=== PATIENT | male | born 1945 | race Two or more races ===

== ENCOUNTER 2020-11-11 11:43 | Emergency (ER) | payer OTHER ==
[~2020-11-11] VITALS: Ht 167.6 cm; Wt 78.9 kg
[2020-11-11 11:45] VITALS: BP 108/83
== END 2020-11-11 13:33 | disposition home or self-care (01) ==
LOC: ER 11:43
DX: K04.7 Periapical abscess without sinus (principal); I10 Essential (primary) hypertension
CPT/HCPCS: 93005

== ENCOUNTER 2021-05-12 16:31 | Emergency (ER) | payer OTHER ==
[~2021-05-12] VITALS: Ht 167.6 cm; Wt 78.5 kg
[2021-05-12 16:40] VITALS: BP 129/69
== END 2021-05-12 18:29 | disposition home or self-care (01) ==
LOC: ER 16:31
DX: M79.10 Myalgia, unspecified site (principal); M79.621 Pain in right upper arm; M54.50 Low back pain, unspecified; I10 Essential (primary) hypertension; V43.52XA Car driver injured in collision with other type car in traffic accident, initial encounter; Y93.89 Activity, other specified; Y92.89 Other specified places as the place of occurrence of the external cause; Y99.8 Other external cause status
CPT/HCPCS: 72100; 73060; 93005

== ENCOUNTER 2021-11-16 06:46 | Emergency (ER) | payer OTHER ==
[~2021-11-16] VITALS: Ht 167.6 cm; Wt 79.0 kg
[2021-11-16 08:00] LABS: Basophils # (auto) 0.1 10 ^3/uL (0-0.2); Basophils % (auto) 1.2 % (0.0-2.0); Eosinophils # (auto) 0.2 10 ^3/uL (0-0.8); Eosinophils % (auto) 3.2 % (0.0-7.0); Hematocrit 44.1 % (41.0-53.0); Hemoglobin 14.9 g/dL (13.5-17.5); Lymphocytes # (auto) 1.4 10 ^3/uL (0.4-5.4); Lymphocytes % (auto) 21.6 % (10.0-50.0); Mean Corpuscular Hemoglobin 30.5 pg (28.0-32.0); Mean Corpuscular Hgb Conc. 33.8 g/dL (32.0-36.0); Mean Corpuscular Volume 90.2 fL (80.0-100.0); Monocytes # (auto) 0.5 10 ^3/uL (0-1.3); Monocytes % (auto) 7.2 % (0.0-12.0); Neutrophils # (auto) 4.3 10 ^3/uL (1.6-8.6); Neutrophils % (auto) 66.8 % (37.0-80.0); Nucleated Red Blood Cells % 0.1 %; Red Blood Cells 4.89 10^6/uL (4.5-5.90); Red Cell Distribution Width 13.9 % (11.8-14.3); White Blood Cell 6.5 10^3/uL (4.4-10.8)
[2021-11-16 08:15] LABS: Albumin 3.8 g/dL (3.4-5.0); Calcium 8.8 mg/dL (8.5-10.1)
[2021-11-16 08:19] LABS: BUN/Creatinine Ratio 16.7; Bilirubin, Total 0.4 mg/dL (0.2-1.0); Total Protein 6.8 g/dL (6.4-8.2)
[2021-11-16 10:10] VITALS: BP 14/85
== END 2021-11-16 10:13 | disposition home or self-care (01) ==
LOC: ER 06:46
DX: I10 Essential (primary) hypertension (principal); F45.8 Other somatoform disorders; E78.5 Hyperlipidemia, unspecified
CPT/HCPCS: 36415; 71045; 80053; 84484; 85025; 93005

== ENCOUNTER 2023-01-24 21:05 | Inpatient (IN) | payer MEDICARE, OTHER ==
[~2023-01-24] VITALS: Ht 167.6 cm; Wt 80.2 kg
[2023-01-24] MEDS ORDERED: MORPHINE SULFATE 4 MG/ML SYR/VIAL IV ONE (21:45)
[2023-01-24] MEDS ORDERED: METOCLOPRAMIDE HCL 5MG/ml INJ 2ml VIAL IV ONE (21:45)
[2023-01-24] MEDS ORDERED: PANTOPRAZOLE 40 MG/10 ML VIAL INJ IV ONE (21:45)
[2023-01-24] MEDS ORDERED: SODIUM CHLORIDE 0.9% 1,000 ML IVB ONE (21:45)
[2023-01-24] MEDS ORDERED: ASPirin 81 mg TAB PO ONE (21:45)
[2023-01-24] MEDS ORDERED: IOHEXOL 300 MG/ML 100ML BOTTLE IJ ONE ×2 (21:57→21:59)
[2023-01-24 22:17] LABS: Basophils # (auto) 0.1 10 ^3/uL (0-0.2); Basophils % (auto) 0.6 % (0.0-2.0); Eosinophils # (auto) 0.1 10 ^3/uL (0-0.8); Eosinophils % (auto) 0.6 % (0.0-7.0); Hematocrit 46.9 % (41.0-53.0); Hemoglobin 16.1 g/dL (13.5-17.5); Lymphocytes # (auto) 1.9 10 ^3/uL (0.4-5.4); Lymphocytes % (auto) 14.3 % (10.0-50.0); Mean Corpuscular Hemoglobin 31.4 pg (28.0-32.0); Mean Corpuscular Hgb Conc. 34.3 g/dL (32.0-36.0); Mean Corpuscular Volume 91.4 fL (80.0-100.0); Monocytes # (auto) 0.8 10 ^3/uL (0-1.3); Monocytes % (auto) 5.6 % (0.0-12.0); Neutrophils # (auto) 10.7 10 ^3/uL (1.6-8.6); Neutrophils % (auto) 78.9 % (37.0-80.0); Nucleated Red Blood Cells % 0.2 %; Red Blood Cells 5.13 10^6/uL (4.5-5.90); Red Cell Distribution Width 14.1 % (11.8-14.3); White Blood Cell 13.6 10^3/uL (4.4-10.8)
[2023-01-24 22:32] LABS: Urine Bacteria NONE SEEN /hpf (None Seen); Urine Blood Negative /uL (Negative); Urine Clarity Clear (Clear); Urine Color Yellow (Yellow); Urine Mucus FEW (None Seen); Urine Protein, UAD 1+ (Negative); Urine WBC 1 /hpf (0 - 3)
[2023-01-24 22:32] LABS: INR 1.14 (0.9-1.15); Partial Thromboplastin Time 29.2 SEC (24.5-34.5); Prothrombin Time 11.9 sec (9.3-11.8)
[2023-01-24 22:33] LABS: Alanine Aminotransferase 25 U/L (7-40); Albumin 4.9 g/dL (3.2-4.8); Alkaline Phosphatase 71 U/L (46-116); Anion Gap 8 (5-15); Aspartate Aminotransferase 30 U/L (13-40); BUN/Creatinine Ratio 10.9 (10.0-20.0); Bilirubin, Total 1.2 mg/dL (0.2-1.0); Blood Urea Nitrogen 12 mg/dL (9-23); Calcium 9.9 mg/dL (8.7-10.4); Carbon Dioxide 24 mmol/L (20-30); Chloride 105 mmol/L (98-107); Glucose 122 mg/dL (74-106); Lipase 48 U/L (12-53); Magnesium 2.1 mg/dL (1.6-2.6); Potassium 4.3 mmol/L (3.5-5.1); Sodium 137 mmol/L (136-145)
[2023-01-24 22:34] LABS: Total Protein 7.6 g/dL (5.7-8.2)
[2023-01-25] MEDS ORDERED: MORPHINE SULFATE INJ 2 MG/ml SYRG IV PRN ×2 (06:00)
[2023-01-25] MEDS ORDERED: ACETAMINOPHEN 325 MG TAB PO PRN (06:00)
[2023-01-25] MEDS ORDERED: HYDROcodone-ACET 5/325MG TAB PO PRN (06:00)
[2023-01-25] MEDS ORDERED: ONDANSETRON HCL 4 MG/2 ML VIAL IV PRN (06:00)
[2023-01-25] MEDS ORDERED: NITROGLYCERIN 0.4 MG SL TAB SL PRN (06:00)
[2023-01-25] MEDS ORDERED: DOCUSATE SOD 100 MG CAP PO PRN (06:00)
[2023-01-25] MEDS: metroNIDAZOLE 500MG/100ML 100 ML IV SCH ×3 (06:52→22:51)
[2023-01-25] MEDS: SODIUM CHLORIDE 0.9% 1,000 ML IV SCH ×2 (06:52→22:51)
[2023-01-25 08:04] VITALS: PULSE 62; RESP 15; O2SAT 97
[2023-01-25] MEDS: PANTOPRAZOLE 40 MG/10 ML VIAL INJ IV SCH (10:01)
[2023-01-25] MEDS: TAMSULOSIN HYDROCHLORIDE 0.4 MG CAP PO SCH (19:02)
[2023-01-25 20:00] VITALS: PULSE 80; RESP 17; O2SAT 96
[2023-01-26] MEDS: metroNIDAZOLE 500MG/100ML 100 ML IV SCH (05:45)
[2023-01-26 06:50] LABS: Alanine Aminotransferase 18 U/L (7-40); Albumin 3.9 g/dL (3.2-4.8); Alkaline Phosphatase 63 U/L (46-116); Anion Gap 8 (5-15); Aspartate Aminotransferase 23 U/L (13-40); BUN/Creatinine Ratio 9.6 (10.0-20.0); Blood Urea Nitrogen 9 mg/dL (9-23); Calcium 8.6 mg/dL (8.7-10.4); Carbon Dioxide 21 mmol/L (20-30); Chloride 110 mmol/L (98-107); Glucose 69 mg/dL (74-106); Sodium 139 mmol/L (136-145)
[2023-01-26] MEDS: D5W/SOD CHL 0.45% 1,000 ML IV SCH ×2 (07:02→20:20)
[2023-01-26 07:51] VITALS: RESP 17; O2SAT 96
[2023-01-26 07:58] LABS: Basophils # (auto) 0 10 ^3/uL (0-0.2); Basophils % (auto) 0.4 % (0.0-2.0); Eosinophils # (auto) 0.2 10 ^3/uL (0-0.8); Eosinophils % (auto) 2.3 % (0.0-7.0); Hematocrit 42.3 % (41.0-53.0); Hemoglobin 14.6 g/dL (13.5-17.5); Lymphocytes # (auto) 1.4 10 ^3/uL (0.4-5.4); Lymphocytes % (auto) 15.8 % (10.0-50.0); Mean Corpuscular Hgb Conc. 34.6 g/dL (32.0-36.0); Mean Corpuscular Volume 92.7 fL (80.0-100.0); Monocytes # (auto) 0.6 10 ^3/uL (0-1.3); Monocytes % (auto) 6.8 % (0.0-12.0); Neutrophils # (auto) 6.8 10 ^3/uL (1.6-8.6); Neutrophils % (auto) 74.7 % (37.0-80.0); Red Blood Cells 4.56 10^6/uL (4.5-5.90); Red Cell Distribution Width 13.6 % (11.8-14.3); White Blood Cell 9.1 10^3/uL (4.4-10.8)
[2023-01-26 09:02] VITALS: BP 139/67; PULSE 86; RESP 18; TEMP 98.3; O2SAT 98
[2023-01-26] MEDS: PANTOPRAZOLE 40 MG/10 ML VIAL INJ IV SCH (09:17)
[2023-01-26] MEDS ORDERED: ATOR40TA52 PO (09:48)
[2023-01-26] MEDS ORDERED: SPIR25TA8 PO (09:48)
[2023-01-26] MEDS ORDERED: CHOL20007 PO (09:48)
[2023-01-26] MEDS ORDERED: TAMS-35 PO (09:48)
[2023-01-26] MEDS ORDERED: BENA-36 PO (09:48)
[2023-01-26 13:34] VITALS: BP 119/59; PULSE 71; RESP 17; TEMP 98; O2SAT 99
[2023-01-26] MEDS ORDERED: GASTROGRAFIN 120 ML SOL ONE (15:31)
[2023-01-26] MEDS: TAMSULOSIN HYDROCHLORIDE 0.4 MG CAP PO SCH (17:30)
[2023-01-26 22:00] VITALS: BP 127/78; PULSE 120; RESP 16; TEMP 97.1; O2SAT 91
[2023-01-27 05:00] VITALS: BP 132/72; PULSE 64; RESP 16; TEMP 98.3; O2SAT 95
[2023-01-27 06:34] LABS: Basophils # (auto) 0.1 10 ^3/uL (0-0.2); Basophils % (auto) 0.7 % (0.0-2.0); Eosinophils # (auto) 0.1 10 ^3/uL (0-0.8); Eosinophils % (auto) 1.4 % (0.0-7.0); Hematocrit 43.6 % (41.0-53.0); Hemoglobin 15.2 g/dL (13.5-17.5); Lymphocytes # (auto) 1.5 10 ^3/uL (0.4-5.4); Lymphocytes % (auto) 14.6 % (10.0-50.0); Mean Corpuscular Hemoglobin 31.7 pg (28.0-32.0); Mean Corpuscular Hgb Conc. 34.8 g/dL (32.0-36.0); Mean Corpuscular Volume 91.1 fL (80.0-100.0); Monocytes # (auto) 0.9 10 ^3/uL (0-1.3); Monocytes % (auto) 8.4 % (0.0-12.0); Neutrophils # (auto) 7.9 10 ^3/uL (1.6-8.6); Neutrophils % (auto) 74.9 % (37.0-80.0); Nucleated Red Blood Cells % 0.1 %; Red Blood Cells 4.79 10^6/uL (4.5-5.90); Red Cell Distribution Width 13.6 % (11.8-14.3); White Blood Cell 10.6 10^3/uL (4.4-10.8)
[2023-01-27 06:59] LABS: Anion Gap 10 (5-15); Carbon Dioxide 21 mmol/L (20-30); Chloride 112 mmol/L (98-107); Potassium 4.2 mmol/L (3.5-5.1); Sodium 143 mmol/L (136-145)
[2023-01-27 07:03] LABS: Glucose 86 mg/dL (74-106)
[2023-01-27 07:05] LABS: BUN/Creatinine Ratio 13.1 (10.0-20.0); Blood Urea Nitrogen 13 mg/dL (9-23)
[2023-01-27 08:00] VITALS: BP 132/73; PULSE 72; RESP 18; RESP 20; TEMP 98.2; O2SAT 93
[2023-01-27 12:00] VITALS: BP 129/76; PULSE 66; RESP 19; TEMP 98.5; O2SAT 98
[2023-01-27 15:05] VITALS: BP 129/76; PULSE 66; RESP 18; TEMP 36.9; O2SAT 98
[2023-01-27 16:00] VITALS: BP 135/82; PULSE 64; RESP 20; TEMP 97.9; O2SAT 96
== END 2023-01-27 16:30 | disposition home or self-care (01) | DRG 390 ==
LOC: ER 21:05 → TELE 01-25 06:05 → TELE-WESTW 01-26 08:20 → WEST WING 01-26 15:48
PROVIDERS: ADMIT Internal Medicine
PROC: 0D9670Z Drainage of Stomach with Drainage Device, Via Natural or Artificial Opening (ICD-10-PCS; principal; 2023-01-25)
DX: K56.50 Intestinal adhesions [bands], unspecified as to partial versus complete obstruction (principal); I10 Essential (primary) hypertension; D72.829 Elevated white blood cell count, unspecified; E78.5 Hyperlipidemia, unspecified; N40.0 Benign prostatic hyperplasia without lower urinary tract symptoms; Z90.49 Acquired absence of other specified parts of digestive tract; Z83.3 Family history of diabetes mellitus; Z87.19 Personal history of other diseases of the digestive system; Z87.442 Personal history of urinary calculi
CPT/HCPCS: 36415; 71045; 74018; 74250; 76536; 80048; 80053; 81001; 83605; 83690; 83735; 83880; 84443; 84484; 85025; 85610; 85730; 87086; 93005; C9113; G0378; J3490

== ENCOUNTER 2023-03-30 08:17 | Emergency (ER) | payer OTHER ==
[~2023-03-30] VITALS: Ht 165.1 cm; Wt 75.9 kg
[~2023-03-30 08:17] MED LIST: ATOR40TA52 PO; BENA-36 PO; CHOL20007 PO; SPIR25TA8 PO; TAMS-35 PO
[2023-03-30 08:55] VITALS: BP 143/84; PULSE 105; RESP 19; TEMP 97.3; O2SAT 97
== END 2023-03-30 10:16 | disposition home or self-care (01) ==
LOC: ER 08:17
DX: B34.9 Viral infection, unspecified (principal); I10 Essential (primary) hypertension; E78.5 Hyperlipidemia, unspecified; Z90.49 Acquired absence of other specified parts of digestive tract
CPT/HCPCS: 93005

== ENCOUNTER 2023-05-11 08:27 | Inpatient (IN) | payer OTHER ==
[~2023-05-11] VITALS: Ht 175.3 cm; Wt 71.6 kg
[2023-05-11 09:37] LABS: Basophils # (auto) 0.1 10 ^3/uL (0-0.2); Basophils % (auto) 0.7 % (0.0-2.0); Eosinophils # (auto) 0.1 10 ^3/uL (0-0.8); Eosinophils % (auto) 1.6 % (0.0-7.0); Hematocrit 46.5 % (41.0-53.0); Hemoglobin 15.8 g/dL (13.5-17.5); Lymphocytes # (auto) 2.4 10 ^3/uL (0.4-5.4); Lymphocytes % (auto) 28.6 % (10.0-50.0); Mean Corpuscular Hemoglobin 31.1 pg (28.0-32.0); Mean Corpuscular Hgb Conc. 33.9 g/dL (32.0-36.0); Mean Corpuscular Volume 91.9 fL (80.0-100.0); Monocytes # (auto) 0.5 10 ^3/uL (0-1.3); Neutrophils # (auto) 5.2 10 ^3/uL (1.6-8.6); Neutrophils % (auto) 63.1 % (37.0-80.0); Red Blood Cells 5.06 10^6/uL (4.5-5.90); Red Cell Distribution Width 14.4 % (11.8-14.3); White Blood Cell 8.2 10^3/uL (4.4-10.8)
[2023-05-11 09:52] LABS: Anion Gap 8 (5-15); Carbon Dioxide 22 mmol/L (20-30); Chloride 109 mmol/L (98-107); Sodium 139 mmol/L (136-145)
[2023-05-11 09:53] LABS: Calcium 9.5 mg/dL (8.5-10.1)
[2023-05-11 09:57] LABS: Glucose 113 mg/dL (74-106)
[2023-05-11 09:58] LABS: BUN/Creatinine Ratio 10.1 (10.0-20.0); Blood Urea Nitrogen 10 mg/dL (9-23)
[2023-05-11] MEDS: ASPirin 81 mg TAB PO ONE (10:02)
[2023-05-11 10:32] LABS: Magnesium 1.9 mg/dL (1.6-2.6)
[2023-05-11 10:39] VITALS: PULSE 56; RESP 19; O2SAT 96
[2023-05-11 11:13] LABS: Urine Bacteria NONE SEEN /hpf (None Seen); Urine Blood Negative /uL (Negative); Urine Clarity Clear (Clear); Urine Color Colorless (Yellow); Urine Protein, UAD Negative (Negative); Urine WBC <1 /hpf (0 - 3)
[2023-05-11] MEDS ORDERED: FIN5T PO (13:09)
[2023-05-11] MEDS ORDERED: PANT40T PO (13:09)
[2023-05-11] MEDS ORDERED: DOCUSATE SOD 100 MG CAP PO PRN (13:15)
[2023-05-11] MEDS ORDERED: NITROGLYCERIN 0.4 MG SL TAB SL PRN (13:15)
[2023-05-11] MEDS ORDERED: guaiFENesin 200 MG/10 ML UD GT PRN (13:15)
[2023-05-11] MEDS ORDERED: MORPHINE SULFATE INJ 2 MG/ml SYRG IV PRN (13:15)
[2023-05-11] MEDS ORDERED: DEXTROSE (50%) 50ML SYRG IV PRN (13:15)
[2023-05-11] MEDS ORDERED: ONDANSETRON HCL 4 MG/2 ML VIAL IV PRN (13:15)
[2023-05-11] MEDS ORDERED: HYDROcodone-ACET 5/325MG TAB PO PRN (13:15)
[2023-05-11] MEDS: InsuLIN REG 1unit/0.01ml Soln (100units/ml) SC SCH (17:00)
[2023-05-11] MEDS: ACCU-CHEK COMFORT CURVE STRIP VI SCH (17:00)
[2023-05-11 17:38] VITALS: BP 107/68; PULSE 70; RESP 20; TEMP 98.2; O2SAT 93
[2023-05-11] MEDS ORDERED: IPRATROPIUM BROM 0.5 MG/2.5ML INH SOL NEB SCH (18:00)
[2023-05-11] MEDS ORDERED: ALBUTEROL SULF 2.5 MG/0.5ML(0.5%) NEB SOLN NEB SCH (18:00)
[2023-05-11 18:24] VITALS: RESP 16; O2SAT 95
[2023-05-11 20:00] VITALS: PULSE 60; PULSE 69; RESP 18; O2SAT 96
[2023-05-11 22:00] VITALS: BP 107/64; PULSE 60; RESP 18; TEMP 97.7; O2SAT 96
[2023-05-11] MEDS: ATORVASTATIN 20 MG TAB PO SCH (22:07)
[2023-05-11] MEDS: FINASTERIDE 5 MG TAB PO SCH (22:07)
[2023-05-11] MEDS: TAMSULOSIN HYDROCHLORIDE 0.4 MG CAP PO SCH (22:07)
[2023-05-12] VITALS (8 sets, daily range): BP systolic 98–117; BP diastolic 65–76; PULSE 64–91; RESP 15–19; TEMP 97.5–98.3; O2SAT 93–97
[2023-05-12 06:04] LABS: Basophils # (auto) 0.1 10 ^3/uL (0-0.2); Basophils % (auto) 0.7 % (0.0-2.0); Eosinophils # (auto) 0.2 10 ^3/uL (0-0.8); Eosinophils % (auto) 1.9 % (0.0-7.0); Hematocrit 43.2 % (41.0-53.0); Hemoglobin 14.8 g/dL (13.5-17.5); Lymphocytes # (auto) 2.3 10 ^3/uL (0.4-5.4); Lymphocytes % (auto) 26.9 % (10.0-50.0); Mean Corpuscular Hemoglobin 31.4 pg (28.0-32.0); Mean Corpuscular Hgb Conc. 34.3 g/dL (32.0-36.0); Mean Corpuscular Volume 91.3 fL (80.0-100.0); Monocytes # (auto) 0.6 10 ^3/uL (0-1.3); Monocytes % (auto) 7.3 % (0.0-12.0); Neutrophils # (auto) 5.5 10 ^3/uL (1.6-8.6); Neutrophils % (auto) 63.2 % (37.0-80.0); Red Blood Cells 4.73 10^6/uL (4.5-5.90); Red Cell Distribution Width 14.1 % (11.8-14.3); White Blood Cell 8.7 10^3/uL (4.4-10.8)
[2023-05-12 06:21] LABS: Alanine Aminotransferase 23 U/L (7-40); Alkaline Phosphatase 66 U/L (46-116); Anion Gap 8 (5-15); Aspartate Aminotransferase 23 U/L (13-40); BUN/Creatinine Ratio 8.7 (10.0-20.0); Bilirubin, Total 0.9 mg/dL (0.2-1.0); Blood Urea Nitrogen 9 mg/dL (9-23); Calcium 9.2 mg/dL (8.5-10.1); Carbon Dioxide 21 mmol/L (20-30); Chloride 109 mmol/L (98-107); Cholesterol 109 mg/dL (< 200); Glucose 93 mg/dL (74-106); HDL Cholesterol 24 mg/dL (40-59); LDL Cholesterol 62 mg/dL (< 100); Potassium 3.9 mmol/L (3.5-5.1); Sodium 138 mmol/L (136-145); Total Protein 6.4 g/dL (5.7-8.2); Triglycerides 147 mg/dL (< 150)
[2023-05-12] MEDS: ENOXAPARIN SOD 40 MG/0.4 ML SYRINGE SC SCH (09:16)
[2023-05-12] MEDS: PANTOPRAZOLE 40 MG TAB PO SCH (09:17)
[2023-05-12] MEDS: CHOLECALCIFEROL (VITD3) 2,000 UNIT CAP/TAB PO SCH (09:17)
[2023-05-12] MEDS: SPIRONOLACTONE 25 MG TAB PO SCH (09:29)
[2023-05-12] MEDS: LISINOPRIL 20 MG TAB PO SCH (09:29)
[2023-05-12] MEDS ORDERED: TAMSULOSIN HYDROCHLORIDE 0.4 MG CAP PO SCH ×2 (10:00→18:00)
[2023-05-12] MEDS ORDERED: FINASTERIDE 5 MG TAB PO SCH (10:00)
[2023-05-12] MEDS: ACETAMINOPHEN 325 MG TAB PO PRN (21:32)
[2023-05-13 05:00] VITALS: BP 99/67; PULSE 71; RESP 16; TEMP 97.7; O2SAT 99
[2023-05-13 08:00] VITALS: PULSE 75
[2023-05-13 08:06] LABS: PSA Free 0.7 ng/mL; Prostate Specific Antigen 4.4 ng/mL (0.0-4.0)
[2023-05-13 08:42] VITALS: BP 111/79; PULSE 73; RESP 14; TEMP 97.9; O2SAT 98
[2023-05-13] MEDS: CHOLECALCIFEROL (VITD3) 1,000UNIT=25mCg TAB PO SCH (09:45)
[2023-05-13 10:18] VITALS: BP_SYST 102; BP_SYST 104; BP_SYST 126; BP_DIAS 73; BP_DIAS 74; BP_DIAS 75; PULSE 82; RESP 19; TEMP 97.3; O2SAT 97
[2023-05-13] MEDS ORDERED: FINASTERIDE 5 MG TAB PO SCH (18:00)
[2023-05-13] MEDS ORDERED: TAMSULOSIN HYDROCHLORIDE 0.4 MG CAP PO SCH (18:00)
== END 2023-05-13 12:35 | disposition left against medical advice (07) | DRG 312 ==
LOC: ER 08:27 → EDBD 08:27 → TELE 13:06 → TELE-WESTW 16:35
PROVIDERS: ADMIT Nurse Practitioner Family; ATTEND Nurse Practitioner Acute Care
DX: R55 Syncope and collapse (principal); I10 Essential (primary) hypertension; E78.5 Hyperlipidemia, unspecified; N40.0 Benign prostatic hyperplasia without lower urinary tract symptoms; R09.89 Other specified symptoms and signs involving the circulatory and respiratory systems; E04.1 Nontoxic single thyroid nodule; I49.3 Ventricular premature depolarization; Z53.29 Procedure and treatment not carried out because of patient's decision for other reasons; K21.9 Gastro-esophageal reflux disease without esophagitis; Z79.899 Other long term (current) drug therapy; Z90.49 Acquired absence of other specified parts of digestive tract; I25.2 Old myocardial infarction; Z83.3 Family history of diabetes mellitus
CPT/HCPCS: 36415; 70450; 71045; 80048; 80053; 80061; 81001; 82962; 83036; 83735; 83880; 84154; 84443; 84484; 85025; 93005; 93306; 93886; 99291; G0378

== ENCOUNTER 2023-07-30 04:24 | Emergency (ER) | payer OTHER ==
[~2023-07-30 04:24] MED LIST changes: +FIN5T PO; +PANT40T PO
== END 2023-07-30 04:54 | disposition left against medical advice (07) ==
LOC: ER 04:24
DX: I10 Essential (primary) hypertension (principal); Z53.21 Procedure and treatment not carried out due to patient leaving prior to being seen by health care provider

== ENCOUNTER 2024-12-29 10:02 | Emergency (ER) | payer OTHER ==
[~2024-12-29] VITALS: Ht 167.6 cm; Wt 70.4 kg
--- NOTE | 2024-12-29 10:36 | ED.PDOC ---
Back pain HPI HPI Comments This is a 79 year old male presenting to the ED with chief complaint of back pain. Patient reports that he has been experiencing right lower back pain for the past 3 months, worsening over time. Patient relays that his pain is currently a 5/10. Patient states that he received an injection for pain from his PCP's office yesterday, but no relief has been noted. Patient denies any dysuria, hematuria, flank pain, nausea, vomiting, diarrhea, fall, or injury. Chief Complaint: Back Pain Time Seen by MD: 10:34 Primary Care Provider: KYLE Reviewed Notes: Nurses Notes, Medications, Allergies Allergies: Coded Allergies: NO KNOWN ALLERGIES (Unverified , 01/18/16) Home Meds Active Scripts Hydrocodone-Acetaminophen (Hydrocodone Bitartrate/AC 5-325 mg) 1 Tab Tab, 1 TAB PO Q8HP PRN for 5 Days, #15 TAB Prov:DAVID TRINH MD 12/29/24 Reported Medications Pantoprazole Sodium Sesquihydr (Pantoprazole Sodium) 40 Mg Tab, 1 TAB PO DAILY 05/11/23 Finasteride (Finasteride) 5 Mg Tab, 1 TAB PO DAILY 05/11/23 Spironolactone (Spironolactone) 25 Mg Tab, 1 TAB PO DAILY, #90 TAB 1 Refill 01/26/23 Cholecalciferol (VITAMIN D3) 2,000 Unit Tab, 1 TAB PO DAILY, #30 TAB 5 Refills 01/26/23 Benazepril Hcl (Benazepril Hcl) 20 Mg Tab, 20 MG PO DAILY for 30 Days, MG 01/26/23 Atorvastatin Calcium (ATORVASTATIN CALCIUM) 40 Mg Tab, 1 TAB PO DAILY, #30 TAB 5 Refills 01/26/23 Tamsulosin Hcl (Flomax) 0.4 Mg Cap, 1 CAP PO DAILY, #30 CAP 11 Refills 01/26/23 Information Source: Patient Mode of Arrival: Ambulatory Timing: Months Duration: Since onset Location of Back pain: (R) Lower back Severity: Moderate Prehospital treatment: None Quality: Aching Onset: Spontaneous History of: None Modifying Factors: Movement Past Medical History PAST MEDICAL HISTORY: GERD, High Lipids, HTN, CO Surgical History: Appendectomy, Cholecystectomy, Hernia Repair Family History Family History: Reviewed,noncontributory to illness, Family hx of HTN Social History Smoker: Non-Smoker Alcohol: Rarely Drugs: Denies Drug Use Lives In: Home Constitutional: denies: chills, diaphoresis, fatigue, fever, malaise, sweats, weakness, others EENTM: denies: blurred vision, double vision, ear bleeding, ear discharge, ear drainage, ear pain, ear ringing, eye pain, eye redness, hearing loss, mouth pain, mouth swelling, nasal discharge, nose bleeding, nose congestion, nose pain, photophobia, tearing, throat pain, throat swelling, voice changes, others Respiratory: denies: cough, hemoptysis, orthopnea, SOB at rest, shortness of breath, SOB with excertion, stridor, wheezing, others Cardiovascular: denies: chest pain, dizzy spells, diaphoresis, Dyspnea on exertion, edema, irregular heart beat, left arm pain, lightheadedness, palpitations, PND, syncope, others Gastrointestinal: denies: abdomen distended, abdominal pain, blood streaked bowels, constipated, diarrhea, dysphagia, difficulty swallowing, hematemesis, melena, nausea, poor appetite, poor fluid intake, rectal bleeding, rectal pain, vomiting, others Genitourinary: denies: burning, dysuria, flank pain, frequency, hematuria, incontinence, penile discharge, penile sore, pain, testicle pain, testicle swelling, urgency, others Neurological: denies: dizziness, fainting, headache, left sided numbness, left sided weakness, numbness, paresthesia, pre-existing deficit, right sided numbness, right sided weakness, seizure, speech problems, tingling, tremors, weakness, others Musculoskeletal: reports: back pain; denies: gout, joint pain, joint swelling, muscle pain, muscle stiffness, neck pain, others Integumetry: denies: bruises, change in color, change in hair/nails, dryness, laceration, lesions, lumps, rash, wounds, others Allergic/Immunocompromised: denies: Difficulty Healing, Frequent Infections, Hives, Itching, others Hematologic/Lymphatic: denies: anemia, blood clots, easy bleeding, easy b ruising, swollen glands, others Endocrine: denies: excessive hunger, excessive sweating, excessive thirst, excessive urination, flushing, intolerance to cold, intolerance to heat, unexplained weight gain, unexplained weight loss, others Psychiatric: denies: anxiety, bipolar disorder, depression, hopeless, panic disorder, schizophrenia, sleepless, suicidal, others All Other Systems: Reviewed and Negative Physical Exam General Appearance: No Apparent Distress HEENT: Normal ENT Inspection, Pharynx Normal, TMs Normal Neck: Full Range of Motion, Non-Tender, Normal, Normal Inspection Respiratory: Chest Non-Tender, Lungs Clear, No Accessory Muscle Use, No Respiratory Distress, Normal Breath Sounds Cardiovascular: No Edema, No JVD, No Murmur, No Gallop, Normal Peripheral Pulses, Regular Rate/Rhythm Breast Exam: Deferred Gastrointestinal: No Organomegaly, Non Tender, No Pulsatile Mass, Normal Bowel Sounds, Soft Genitalia: Deferred Pelvic: Deferred Rectal: Deferred Extremities: No calf tenderness, Normal capillary refill, Normal inspection, Normal range of motion, Non-tender, No pedal edema Musculoskeletal : Location: Right Extremity Location: Back Apperance: Tenderness: Mild Neurologic: Alert, supervisor phosphoric acid II-XII nml as Tested, No Motor Deficits, Normal Affect, Normal Mood, No Sensory Deficits Cerebellar Function: Normal Reflexes: Normal Skin: Dry, Normal Color, Warm Lymphatic: No Adenopathy Was a procedure done? Was a procedure done?: No Back Pain Differential Dx Differential Diagnosis: Musculoskeletal Pain X-Ray, Labs, Meds, VS Vital Signs Date Time Temp Pulse Resp B/P (MAP) Pulse Ox O2 Delivery O2 Flow Rate FiO2 12/29/24 10:06 97.4 100 18 103/81 98 97.4 CAT scan of the abdomen and pelvis shows: IMPRESSION: Limited evaluation without contrast. Colonic diverticular disease. Moderate volume stool in the colon. Large fat containing lesion in the transverse colon measuring 5.4 cm, possibly lipoma. Recommend GI consultation for further evaluation. No hydronephrosis / nephrolithiasis. Atherosclerotic disease. Prostatomegaly. Correlate with PSA levels. The patient was given Toradol 60 mg IM The patient will be discharged and will follow up with the primary care doctor The patient will return to the emergency department's condition worsens The patient was given a prescription of acetaminophen The patient will return to the emergency department's condition worsens We did go over the findings of the enlarged prostate Images Reviewed?: Images reviewed and evaluated by me Time of 1ST Reevaluation: 11:34 Reevaluation 1ST: Improved Patient Education/Counseling: Diagnosis, Treatment, Prognosis, Need For Follow Up Family Education/Counseling: No Family Present SEPSIS Sepsis Screen Date sepsis recognized/suspect: Dec 29, 2024 Time Sepsis recognized/suspect: 1007 Recent Procedure: No On Antibiotic Therapy: No Respiratory Rate >20: No Heart Rate >90: Yes Temp<36 C (96.8 F) or >38.3 C: No SBP <90 or MAP <65 mmHG: No New Acute Mental Status Change: No Is the patient on CPAP, BIPAP,: No Physician Orders Urinalysis (12/29/24 10:31) Ct Ab Pel Wo Con-No Oral Or Iv (12/29/24 10:31) Vital Signs Date Time Temp Pulse Resp B/P (MAP) Pulse Ox O2 Delivery O2 Flow Rate FiO2 12/29/24 10:06 97.4 100 18 103/81 98 97.4 Departure 1 Departure Time of Disposition: 11:33 Impression: Primary Impression: Musculoskeletal pain Disposition: 01 HOME / SELF CARE / HOMELESS Condition: Fair e-Prescriptions Hydrocodone-Acetaminophen (Hydrocodone Bitartrate/AC 5-325 mg) 1 Tab Tab 1 TAB PO Q8HP PRN for 5 Days, #15 TAB Prov: DAVID TRINH MD 12/29/24 Discharged With: Self Critical Care Note Critical Care Time?: No Stability Stability form required: No Heart Score Heart Score: Heart Score Response (Comments) Value History N/A 0 EKG N/A 0 Age N/A 0 Risk Factors N/A 0 Troponin N/A 0 Total 0 I personally scribed for DAVID TRINH MD ([email or web address]) on 12/29/24 at 10:36. Electronically submitted by Fan Greenwood ([email or web address]). DAVID TRINH MD Dec 29, 2024 10:36
--- NOTE | 2024-12-29 11:13 | DVH ---
Indication: right flank pain Technique: CT axial images of the abdomen and pelvis are obtained without contrast. Coronal and sagit rosa reformats were obtained. Radiation Dose Information: CTDI volume is 8 mGy. Dose-length product is 400 mGy*cm Comparison: None FINDINGS: There is limited interpretation of the abdomen and pelvis without administration of intravenous contr ast. The lung bases demonstrate atelectasis. Diaphragmatic/ pleural calcifications. Right adrenal gland atrophic. Left adrenal gland unremarkable. Spleen and pancreas unremarkable in sh ape. Cholecystectomy. Hepatic calcifications consistent with remote granulomatous disease. Kidneys demonstrate no hydronephrosis/ nephrolithiasis. Stomach partially distended. Small bowel loops are normal in caliber. Colonic diverticular disease. Moderate volume stool in the colon. Large fatty prominence in the trans verse colon measuring 5.4 x 3.2 cm. Abdominal aortic atherosclerotic disease. Bladder is partially distended. Prostate enlarged measuring 5.8 cm transversely. No free pelvic fluid. No inguinal lymphadenopathy. [id number] bilateral sacroiliac degenerative joint disease. [id number]-[id number] thoracolumbar dege nerative disc disease. Qpgp-ob-drojelwr bilateral sacroiliac degenerative joint disease. Afyr-al-gduiglah thoracolumbar dege nerative disc disease. IMPRESSION: Limited evaluation without contrast. Colonic diverticular disease. Moderate volume stool in the colon. Large fat containing lesion in the transverse colon measuring 5.4 cm, possibly lipoma. Recommend GI c onsultation for further evaluation. No hydronephrosis / nephrolithiasis. Atherosclerotic disease. Prostatomegaly. Correlate with PSA levels. Other findings as described.
[2024-12-29] MEDS ORDERED: HYDR-4902 PO (11:32)
[2024-12-29] MEDS: KETOROLAC TROMETH 60MG/2ML VIAL IM ONE (12:03)
[2024-12-29 12:35] LABS: Urine Protein, UAD Negative (Negative)
[2024-12-29 12:41] VITALS: BP 143/92; PULSE 66; RESP 18; TEMP 98.2; O2SAT 99
== END 2024-12-29 12:53 | disposition home or self-care (01) ==
LOC: ER 10:02
DX: M54.50 Low back pain, unspecified (principal); R10.A1 Flank pain, right side; F10.90 Alcohol use, unspecified, uncomplicated; E78.5 Hyperlipidemia, unspecified; I10 Essential (primary) hypertension; K21.9 Gastro-esophageal reflux disease without esophagitis; Z79.899 Other long term (current) drug therapy; Z90.49 Acquired absence of other specified parts of digestive tract; Z98.890 Other specified postprocedural states; Y90.9 Presence of alcohol in blood, level not specified
CPT/HCPCS: 74176; 81001; 96372; 99285; J1885